=== PATIENT | male | born 2005 | race Caucasian/White ===

== ENCOUNTER 2023-12-21 15:28 | Emergency (ER) | payer SELFPAY ==
[2023-12-21 15:38] VITALS: BP 136/80
[2023-12-21 16:07] LABS: % Basophils 0.2 % (0-2); % Eosinophils 0.1 % (0-6); % Immature Granulocytes 0.6 % (0-0.5); % Lymphocytes 7.6 % (20.5-51.1); % Monocytes 4.3 % (1.7-9.3); % Neutrophils 87.2 % (42.2-75.2); Absolute Immature Granulocytes 0.1 10^3/uL (0-0.05); Absolute Lymphocytes 1.5 10^3/uL (1.2-3.4); Absolute Monocytes 0.8 10^3/uL (0.1-0.6); Absolute Neutrophils 16.8 10^3/uL (1.4-6.5); Hematocrit 43.8 % (39.0-52.0); Mean Corp Hgb Conc. 36.5 g/dL (33.0-37.0); Mean Corpuscular Hgb 30.8 pg (27.0-31.0); Mean Corpuscular Volume 84.2 fL (80.0-94.0); Mean Platelet Volume 10.3 fL (7.4-10.4); Nucleated Red Blood Cells % 0 % (-); Platelet Count 337 10^3/uL (130-400); Red Cell Dist. Width 11.8 % (11.5-14.5); White Blood Cell Count 19.2 10^3/uL (4.8-10.8)
--- NOTE | 2023-12-21 16:07 | ED.GENMED ---
History of Present Illness
<Poonam Manzano PA-C - Last Filed: 12/21/23 21:25>
General
Chief Complaint: Fainting/Passed Out
Source: patient
Exam Limitations: none
Time Seen by Provider: 12/21/23 16:06
Nursing documentation reviewed up to this point in time: agreed with
History of Present Illness
History of Present Illness:
18-year-old male with past medical history of asthma, POTS presents emergency department today following a near syncopal episode. Patient reports that he was at work today, standing up when he suddenly started to feel dizzy, lightheaded, and felt
like he was going to feel faint. Patient states that he sat down drink some water and started to feel bit better but notes that his lightheadedness persists. Patient also notes that he started develop some chest tightness as well as shortness of
breath. Patient feels like it hurts when he breathes. Patient denies any cough or cold-like symptoms, patient has any fevers or chills or sick contacts. Patient has no family history of early cardiac disease. Patient states that this current
episode feels like it could be similar to a POTS episode but feels a lot worse. Patient also notes some chest pain that hurts when he breaths. Patient denies family history of early cardiac disease.
Past History
<Poonam Manzano PA-C - Last Filed: 12/21/23 21:25>
Past History
ED Past Medical History: Asthma and Other ('POTS')
ED Past Surgical History: None
Social History
Tobacco: Non-smoker
Alcohol: None
Drug: None
Personal: Single
Employment: Employed
Family History
Family History: Other (Noncontributory)
Review of Systems
<Poonam Manzano PA-C - Last Filed: 12/21/23 21:25>
Review of Systems
All Other Systems: ROS reviewed and negative except as documented in HPI and ROS
Phy Exam
<Poonam Manzano PA-C - Last Filed: 12/21/23 21:25>
Physical Exam
Physical Exam:
General: Patient is well appearing and in no acute distress; non-toxic
Skin: Warm and dry, no rashes or lesions
Head: Normocephalic, atraumatic
Eyes: Sclera non-icteric. EOMs intact.
Cardiac: Patient midly tachycardic otherwise RRR, no murmurs. No tenderness to palpation of the external chest wall.
Peripheral Vascular: No lower extremity swelling or edema.
Pulm: Normal respiratory effort, no wheezes, rales, rhonchi, equal breath sounds bilaterally.
Neuro: CN II-XII intact, no focal neurologic deficits.
Psychiatric: Anxious affect.
Scores
<Poonam Manzano PA-C - Last Filed: 12/21/23 21:25>
PERC Rule Criteria
Age <50 years: Yes
HR <100 bpm: Yes
Room air oxygen sat >94%: Yes
History of DVT or PE: No
Recent trauma or surgery: No
Hemoptysis: No
Exogenous estrogen: No
Clinical signs suggestive of DVT: No
: No
Considered low risk for PE: Yes
PERC Score: 0
PE can be excluded by PERC: Yes
<Rob Fuentes DO - Last Filed: 12/21/23 17:49>
PERC Rule Criteria
PERC Score: 0
PE can be excluded by PERC: Yes
Course
<Poonam Manzano PA-C - Last Filed: 12/21/23 21:25>
Orders/Labs/Results
Orders:
Orders
12/21/23 15:42
Electrocardiogram (*1) Urgent
Reason for Study: Syncope
EKG- Treatment ONCE
12/21/23 15:57
Complete Blood Count/With Diff Urgent
12/21/23 16:30
CR Chest - 2 Views Urgent
Comment:
Reason For Exam: chest pain, shortness of breath
12/21/23 16:33
COVID-19 Antigen Urgent
Source: Nasal Swab
Comprehensive Metabolic Panel Urgent
Troponin I Urgent
12/21/23 17:00
Add On- LAB Urgent
Tests Added?: d dimer
12/21/23 17:32
D-Dimer Urgent
Comment: ADD ON
12/21/23 17:42
0.9% Sodium Chloride 1000 ml [Nss] 1,000 ml IV BOLUS
Abnormal Lab Results
12/21/23 12/21/23
15:57 16:33
WBC 19.2 H 10^3/uL
(4.8-10.8)
Abs Immat Gran (auto) 0.1 H 10^3/uL
(0-0.05)
Absolute Neuts (auto) 16.8 H 10^3/uL
(1.4-6.5)
Absolute Monos (auto) 0.8 H 10^3/uL
(0.1-0.6)
Immature Gran % 0.6 H %
(0-0.5)
Neutrophils % 87.2 H %
(42.2-75.2)
Lymphocytes % 7.6 L %
(20.5-51.1)
Carbon Dioxide 18 L mmol/L
(22-30)
Glucose 111 H mg/dl
(70-99)
12/21/23 15:57
12/21/23 16:33
Vital Signs
Initial and Last Documented VS:
Initial Vital Signs
Temp Pulse Resp BP Pulse Ox
98.3 F 95 16 136/80 100
12/21/23 15:38 12/21/23 15:38 12/21/23 15:38 12/21/23 15:38 12/21/23 15:38
Last Documented Vital Signs
Temp Pulse Resp BP Pulse Ox
99.4 F 77 18 118/64 100
12/21/23 18:24 12/21/23 18:24 12/21/23 18:24 12/21/23 18:24 12/21/23 18:24
<Rob Fuentes, DO - Last Filed: 12/21/23 17:49>
Orders/Labs/Results
Orders:
Orders
12/21/23 15:42
Electrocardiogram (*1) Urgent
Reason for Study: Syncope
EKG- Treatment ONCE
12/21/23 15:57
Complete Blood Count/With Diff Urgent
12/21/23 16:30
CR Chest - 2 Views Urgent
Comment:
Reason For Exam: chest pain, shortness of breath
12/21/23 16:33
COVID-19 Antigen Urgent
Source: Nasal Swab
Comprehensive Metabolic Panel Urgent
Troponin I Urgent
12/21/23 17:00
Add On- LAB Urgent
Tests Added?: d dimer
12/21/23 17:32
D-Dimer Urgent
Comment: ADD ON
12/21/23 17:42
0.9% Sodium Chloride 1000 ml [Nss] 1,000 ml IV BOLUS
Abnormal Lab Results
12/21/23 12/21/23
15:57 16:33
WBC 19.2 H 10^3/uL
(4.8-10.8)
Abs Immat Gran (auto) 0.1 H 10^3/uL
(0-0.05)
Absolute Neuts (auto) 16.8 H 10^3/uL
(1.4-6.5)
Absolute Monos (auto) 0.8 H 10^3/uL
(0.1-0.6)
Immature Gran % 0.6 H %
(0-0.5)
Neutrophils % 87.2 H %
(42.2-75.2)
Lymphocytes % 7.6 L %
(20.5-51.1)
Carbon Dioxide 18 L mmol/L
(22-30)
Glucose 111 H mg/dl
(70-99)
12/21/23 15:57
12/21/23 16:33
Vital Signs
Initial and Last Documented VS:
Initial Vital Signs
Temp Pulse Resp BP Pulse Ox
98.3 F 95 16 136/80 100
12/21/23 15:38 12/21/23 15:38 12/21/23 15:38 12/21/23 15:38 12/21/23 15:38
Last Documented Vital Signs
Temp Pulse Resp BP Pulse Ox
99.4 F 77 18 118/64 100
12/21/23 18:24 12/21/23 18:24 12/21/23 18:24 12/21/23 18:24 12/21/23 18:24
Augielt;Poonam Manzano PA-C - Last Filed: 12/21/23 21:25>
MDM/Problems Addressed
Differential Diagnosis Includes:
ddx include POTS, vasovagal syncope, arrhythmia pneumothorax, pe
MDM/Problems Addressed:
Near syncope, chest pain, shortness of breath:
18-year-old male with past medical history of asthma, POTS presents emergency department today following a near syncopal episode. Patient reports that he was at work today, standing up when he suddenly started to feel dizzy, lightheaded, and felt
like he was going to feel faint. Patient states that he sat down drink some water and started to feel bit better but notes that his lightheadedness persists. Also has no CP, SOB. Here in the ER patient is well appearing no acute distress no murmurs
on exam. CXR negative, EKG shows no arrhythmia, no signs of ischemia, troponin undetectable, d dimer normal. Patient was given fluids. On reassessment, patient notes that he feels better and no longer is symptomatic other than mild lightheadedness.
Patient stable for discharge. Of note, WBC count 19, did make patient aware and urged to have blood work repeated as as outpatient.
Chronic conditions affecting care:
n/a
Acute Exacerbation and/or Progression of Chronic Illness:
n/a
<Poonam Manzano PA-C - Last Filed: 12/21/23 21:25>
*Radiology
Radiology exam reviewed: preliminary read by ED provider (no acute abnormality )
*Pulse Oximetry
Patient hypoxic: no
*EKG
Interpreted by ED Provider?: Yes
EKG Intrepretation Date: 12/21/23
Interpretation: normal
Comparison EKG: no changes
Heart Rate: 82
Rate: normal
Rhythm: sinus
[place]: normal axis
Interval: normal interval
QRS Pattern: normal QRS
Ischemia: no ischemia
*Critical Care Note
Total Time (30-74mins, 75-104mins- exclusive of procedures): Not Applicable
Data Reviewed
Review of Other/Old Records Reveals: Records (reviewed er physician documentation from march where patient was seen for chest wall pain, had unremarkable workup)
Source: patient and records
ED Attending Note
<Poonam Manzano PA-C - Last Filed: 12/21/23 21:25>
-
Portions of this chart may have been created with voice recognition software.� Occasional wrong word or��sound alike� substitutions may have occurred due to the inherent limitations of voice recognition software.
<Rob Fuentes DO - Last Filed: 12/21/23 17:49>
ED Attending Note
Patient seen and examined by attending physician: Yes
I performed the substantive portion of visit, reviewed & personally made and approve the management plan that is documented in note by myself or JORDANA.: Yes
ED Attending Note:
Seen with PA examined independently agree with assessment and plan
POTS, near syncope, EKG and chest x-ray reports noted,
Discharge Plan
Departure
Patient Disposition: Home (Routine Discharge)
Date of Disposition: 12/21/23
Time of Disposition: 18:47
Patient with high blood pressure during this ER visit?: No
Condition: Good
Discharge Problem:
Near syncope
Instructions: Orthostatic hypotension, Syncope (Fainting) (DC)
Prescriptions:
No Action
prednisone 10 MG tablet
10 mg PO .TAPER Qty: 30 0RF
Rx Instructions:
Take 40mg daily x3days, 30mg daily x3days,
20mg daily x3days, 10mg daily x3days.
doxycycline hyclate 100 MG capsule
100 mg PO Q12 Qty: 20 0RF
ipratropium-albuterol 3 ML solution for nebulization
3 ml inhalation QID Qty: 50 0RF
amoxicillin-pot clavulanate [Augmentin ES-600] 600-42.9 mg/5 mL suspension for reconstitution
5 ml PO BID 10 Days Qty: 100 0RF
hydrocortisone [Proctocort] 1 % cream
1 applic topical TID Qty: 28.35 0RF
Referrals:
Nuria Marcus MD [Family Provider] -
Activity Restrictions/Additional Instructions:
Your white blood cell count was elevated today. Please have your blood work repeated in 1 week.
Please return to the emergency department should you experience any acute worsening or symptoms, fevers or chills, persistent nausea or vomiting, or any other signs or symptoms concerning to you.
Interventions
Interventions:
*Risk Screen - Suicide Last Done: 12/21/23 16:41
*General Assessment Last Done: 12/21/23 16:41
*Neglect/Abuse Screening Last Done: 12/21/23 16:41
ED- Fall Risk Assessment Last Done: 12/21/23 16:42
*ED COVID-19 Vaccine History Last Done: 12/21/23 16:41
*Nursing Disposition Last Done: 12/21/23 19:07
ED- Cardiac Assessment Last Done: 12/21/23 16:42
ED- Neurological Assessment Last Done: 12/21/23 16:42
Discharge Date and Time
Discharge Date/Time: 12/21/23 19:07
Print Language: FINNISH
[2023-12-21 16:32] VITALS: BMI 21.7
[2023-12-21 17:11] LABS: COVID-19 Antigen Negative (Negative); Troponin I < 0.012 ng/ml
[2023-12-21 17:23] LABS: ALT (SGPT) 37 U/L (0-50); AST (SGOT) 32 U/L (17-59); Albumin 4.8 g/dl (3.5-5.0); Alkaline Phosphatase 60 U/L (38-126); Blood Urea Nitrogen 15 mg/dl (9-20); Calcium 10.1 mg/dl (8.4-10.2); Carbon Dioxide 18 mmol/L (22-30); Chloride 103 mmol/L (98-107); Estimated Creatinine Clearance > 125 ml/min; Glucose 111 mg/dl (70-99); Potassium 3.6 mmol/L (3.5-5.1); Sodium 141 mmol/L (135-145); Total Protein 7.8 g/dl (6.3-8.2); eGFR > 60.00
[2023-12-21 18:03] LABS: D-Dimer < 0.27 ug/mlFEU (0.00-0.50)
[2023-12-21] MEDS: NSS 1000 IV (18:14)
[2023-12-21 18:24] VITALS: BP 118/64
== END 2023-12-21 19:07 | disposition home or self-care (01) ==
LOC: EMR 15:28
PROVIDERS: Emergency Medicine; Physician Assistant; EMERGENCY PHYSICIAN Emergency Medicine; FAMILY PHYSICIAN Family Medicine
DX: R55 Syncope and collapse (principal); R07.89 Other chest pain; J45.909 Unspecified asthma, uncomplicated; Z11.52 Encounter for screening for COVID-19
CPT/HCPCS: 99285; 71046; 80053; 84484; 85025; 85379; 87811; 93005